=== PATIENT | female | born 1995 | race Two or more races ===

== ENCOUNTER 2016-10-08 20:00 | Emergency (ER) | payer OTHER ==
[~2016-10-08] VITALS: Ht 170.2 cm; Wt 56.8 kg
[2016-10-08] MEDS ORDERED: NORG1TAB39 PO (20:13)
[2016-10-08 23:02] VITALS: BP 130/72
== END 2016-10-08 23:17 | disposition home or self-care (01) ==
LOC: EMS 20:06
DX: N64.4 Mastodynia (principal); N92.6 Irregular menstruation, unspecified
CPT/HCPCS: 81025; 99283

== ENCOUNTER 2016-10-31 12:57 | Emergency (ER) | payer OTHER ==
[~2016-10-31] VITALS: Ht 170.2 cm; Wt 56.7 kg
[~2016-10-31 12:57] MED LIST: NORG1TAB39 PO
[2016-10-31 13:41] VITALS: BP 136/82
== END 2016-10-31 15:00 | disposition home or self-care (01) ==
LOC: EMS 12:57
DX: N60.11 Diffuse cystic mastopathy of right breast (principal)
CPT/HCPCS: 99283